=== PATIENT | female | born 1930 | race Caucasian/White ===

== ENCOUNTER 2017-10-12 23:41 | Emergency (ER) | payer BC, MEDICARE | END 2017-10-13 12:03 | disposition home or self-care (01) | LOC: E/R 10-13 12:03 | DX: S09.90XA Unspecified injury of head, initial encounter (principal); I10 Essential (primary) hypertension; R00.0 Tachycardia, unspecified; R40.2252 Coma scale, best verbal response, oriented, at arrival to emergency department; R40.2362 Coma scale, best motor response, obeys commands, at arrival to emergency department; R40.2142 Coma scale, eyes open, spontaneous, at arrival to emergency department; Y08.89XA Assault by other specified means, initial encounter | CPT/HCPCS: 99283 ==